=== PATIENT | female | born 1975 ===

== ENCOUNTER 2017-07-30 15:29 | Emergency (ER) | payer OTHER ==
[~2017-07-30] VITALS: Ht 165.1 cm; Wt 61.2 kg
[~2017-07-30 15:29] MED LIST changes: -FLONASE ALLERG9.9 ML NASAL; -KEFLEX500 MG PO; -KETO10TA2 PO
[2017-07-30] MEDS ORDERED: FLONASE ALLERG9.9 ML NASAL (17:23)
[2017-07-30] MEDS ORDERED: KETO10TA2 PO (17:23)
[2017-07-30] MEDS ORDERED: KEFLEX500 MG PO (17:23)
== END 2017-07-30 17:51 | disposition home or self-care (01) ==
LOC: ER 15:29
DX: T24.212A Burn of second degree of left thigh, initial encounter (principal); X10.0XXA Contact with hot drinks, initial encounter; Y93.89 Activity, other specified; Y92.89 Other specified places as the place of occurrence of the external cause; Y99.8 Other external cause status; J32.8 Other chronic sinusitis

== ENCOUNTER → 2017-07-30 | Outpatient (CLI) | payer OTHER ==
[~2017-07-30] VITALS: Ht 152.4 cm; Wt 55.3 kg
[~2017-07-30] MED LIST: ANTICONCEPTIVOS; FLONASE ALLERG9.9 ML NASAL; KEFLEX500 MG PO; KETO10TA2 PO
== END | disposition home or self-care (01) ==
LOC: PPHC 13:00
DX: T24.112A Burn of first degree of left thigh, initial encounter (principal); X10.0XXA Contact with hot drinks, initial encounter; Y93.89 Activity, other specified; Y92.89 Other specified places as the place of occurrence of the external cause; Y99.8 Other external cause status

== ENCOUNTER 2022-04-01 15:53 | Emergency (ER) | payer OTHER ==
[~2022-04-01] VITALS: Ht 160 cm; Wt 62.6 kg
[~2022-04-01 15:53] MED LIST changes: +FLONASE ALLERG9.9 ML NASAL; +KEFLEX500 MG PO; +KETO10TA2 PO
== END 2022-04-01 21:49 | disposition home or self-care (01) ==
LOC: ER 15:53
DX: K52.9 Noninfective gastroenteritis and colitis, unspecified (principal)